=== PATIENT | female | born 1980 | race Caucasian/White ===

== ENCOUNTER 2024-06-23 14:13 | Emergency (ER) | payer OTHER ==
--- NOTE | 2024-06-23 15:00 | NUR ---
CALLED PT IN LOBBY AND OUTSIDE, NO ANSWER.
--- NOTE | 2024-06-23 15:15 | NUR ---
CALLED PT IN LOBBY AND OUTSIDE, NO ANSWER.
--- NOTE | 2024-06-23 15:20 | NUR ---
PATIENT LEFT WITHOUT BEING TRIAGE. NO FURTHER CARE PROVIDED FOR PATIENT.
--- NOTE | 2024-06-23 15:26 | NUR ---
PATIENT LEFT WITHOUT BEING SEEN BY DR. HUSAIN. NO FURTHER CARE PROVIDED FOR PATIENT.
== END 2024-06-23 15:00 | disposition left against medical advice (07) ==
LOC: MED 14:13
DX: S61.219A Laceration without foreign body of unspecified finger without damage to nail, initial encounter (principal); Z53.21 Procedure and treatment not carried out due to patient leaving prior to being seen by health care provider; X58.XXXA Exposure to other specified factors, initial encounter; Y93.89 Activity, other specified; Y92.89 Other specified places as the place of occurrence of the external cause; Y99.8 Other external cause status